=== PATIENT | female | born 1985 | race Caucasian/White ===

== ENCOUNTER 2022-06-10 15:34 | Emergency (ER) | payer MEDICAID ==
[~2022-06-10] VITALS: Ht 162.6 cm; Wt 136.4 kg
[~2022-06-10 15:34] MED LIST: NO HOME MEDS
[2022-06-10 16:39] VITALS: BP 212/104
[2022-06-10] MEDS ORDERED: AZIT-83 PO (19:04)
[2022-06-10] MEDS ORDERED: azithromycin 250mg tablet PO ONE (19:05)
== END 2022-06-10 19:22 | disposition home or self-care (01) ==
LOC: ER 15:34
DX: J02.9 Acute pharyngitis, unspecified (principal); Z91.013 Allergy to seafood; Z79.899 Other long term (current) drug therapy; Z79.2 Long term (current) use of antibiotics
CPT/HCPCS: 71045; 99283

== ENCOUNTER 2022-06-22 11:58 | Emergency (ER) | payer MEDICAID ==
[~2022-06-22] VITALS: Ht 162.6 cm; Wt 143.2 kg
[~2022-06-22 11:58] MED LIST changes: +AZIT-83 PO
[2022-06-22 12:18] VITALS: BP 185/126
[2022-06-22] MEDS ORDERED: albuterol 2.5 MG/3 ML nebule NEB ONE (14:50)
[2022-06-22] MEDS ORDERED: predniSONE 20 mg tablet PO ONE (15:20)
[2022-06-22] MEDS ORDERED: PRED20TA PO (15:48)
[2022-06-22] MEDS ORDERED: ALBU8HFA PO (15:48)
[2022-06-22] MEDS ORDERED: GUAI400T92 PO (15:48)
== END 2022-06-22 16:49 | disposition home or self-care (01) ==
LOC: ER 11:59
DX: J45.909 Unspecified asthma, uncomplicated (principal); Z20.822 Contact with and (suspected) exposure to COVID-19; I10 Essential (primary) hypertension; Z91.013 Allergy to seafood
CPT/HCPCS: 71045; 87502; 87503; 87635; 94640; 99284; C9803; J7512; 94760